=== PATIENT | female | born 1965 | race African-American/Black ===

== ENCOUNTER 2016-09-28 09:36 | Emergency (ER) | payer OTHER ==
[~2016-09-28] VITALS: Ht 162.6 cm; Wt 70.3 kg
[~2016-09-28 09:36] MED LIST: HYDROXYZINE HCL50 M1 PO; KEFLEX500 M1 PO; PREDNISONE10 M2 PO; TRIAMCINOLONE A15 G2 TOP
[2016-09-28 09:40] VITALS: BP 124/81
--- NOTE | 2016-09-28 10:44 | ED NECK/BACK PAIN COMPLAINT ---
History of Present Illness General Chief Complaint: Neck/Upper Back Pain/Injury Stated Complaint: NECK STIFFNESS Source: patient Exam Limitations: no limitations Vital Signs & Intake/Output Vital Signs & Intake/Output Vital Signs Date Time Temp Pulse Resp B/P B/P Pulse O2 O2 Flow FiO2 Mean Ox Delivery Rate 09/28 0940 97.2 61 16 124/81 95 Room Air Allergies Coded Allergies: ciprofloxacin (From [facility]) (RASH 11/03/15) Reconcile Medications Cyclobenzaprine HCl 10 MG TABLET 1 TAB PO QPM PRN MUSCLE RELAXOR Meloxicam 15 MG TABLET 1 TAB PO DAILY PRN PAIN Methylprednisolone. (Medrol) 4 MG TAB.DS.PK 1 DP PO AD INFLAMMATION 6 on day 1 then reduce by one tablet daily until gone Triage Note: PT STATES HER NECK IS "STUCK". PT STATES THIS HAPPEND TO HER 2 YEARS AGO AND SHE CAME HERE AND THEY GAVE HER SOMTHING THAT WORKED. Triage Nurses Notes Reviewed? yes Onset: Gradual Duration: constant Timing: single episode today Quality/Severity: severe Location: paraspinous muscles Method of Injury: unknown HPI: Patient is a 50-year-old female who presents to emergency room stating that she woke up this morning with left-sided cervical neck pain. Patient denies any mechanism of injury. Patient does state that she's had intermittent episodes of left upper extremity paresthesia. Denies any headache chest pain arm pain jaw pain nausea vomiting shortness of breath extremity swelling or weakness. Denies any facial droop or blurred vision. No medications given prior to arrival. Patient does state that she had similar events a few years ago where Naprosyn and muscle relaxer completely improved her symptoms. (PAMELA YANEZ) Past History Travel History Traveled to [place] past 21 day No Medical History Any Pertinent Medical History? see below for history Neurological: NONE EENT: NONE Cardiovascular: NONE Respiratory: NONE Gastrointestinal: NONE Hepatic: NONE Renal: NONE Musculoskeletal: NONE Psychiatric: NONE Endocrine: NONE Surgical History Surgical History: non-contributory, N Psychosocial History What is your primary language [place] Leonean Tobacco Use: Never used ETOH Use: denies use Illicit Drug Use: denies illicit drug use Family History Hx Contributory? No (PAMELA YANEZ) Review of Systems Review of Systems Constitutional: Reports: no symptoms. Eyes: Reports: no symptoms. Ears, Nose, Throat, Mouth: Reports: no symptoms. Respiratory: Reports: no symptoms. Cardiovascular: Reports: no symptoms. Gastrointestinal/Abdominal: Reports: no symptoms. Musculoskeletal: Reports: see HPI, muscle pain, muscle stiffness, neck pain. Skin: Reports: no symptoms. Neurological/Psychological: Reports: no symptoms. All Other Systems: Reviewed and Negative (PAMELA YANEZ) Physical Exam Physical Exam General Appearance: no apparent distress, alert, comfortable Neck: normal inspection, supple, limited range of motion, paraspinous muscle tender, stiff neck, tender lateral Comments: Well-developed well-nourished person in no acute distress HEENT: Normal EENT exam, extraocular motion intact, no nystagmus. Pupils equally round and reactive to light and accommodation. Nose is atraumatic. External auditory canal and Tympanic membranes clear. Pharynx normal. No swelling or edema. Back: Nontender, no CVA tenderness. Cardiovascular: Regular rate and rhythms no murmurs rubs or gallops, normal JVP Respiratory: Chest nontender. No respiratory distress.breath sounds clear to auscultation bilaterally Abdomen: Soft, nontender nondistended, no appreciable organomegaly. Normal bowel sounds. No ascites Extremity: No edema, no calf tenderness to palpation, normal and equal pulses. Bilateral upper extremity myotomes DTRs intact Patient had decreased left upper extremity dermatome sensation compared bilaterally Neuro: Alert oriented x3, motor sensory normal Skin: No appreciable rash on exposed skin, skin is warm and dry. Psych: Mood and affect is normal, memory and judgment is normal. (PAMELA YANEZ) Progress Differential Diagnosis: C spine injury, carotid dissection, cauda equina syn, herniated disc, myofascial strain, pyelo/UTI, sciatica, spinal cord inj, thoracic outlet syn, T/L spine injury, ureterolithiasis Plan of Care: Differential diagnosis also includes discitis spinal abscess Due to history of present illness and exam findings or suspicion of cervical muscular strain and radiculopathy. (PAMELA YANEZ) Departure Departure Disposition: HOME OR SELF CARE Condition: Stable Clinical Impression Primary Impression: Neck pain Secondary Impressions: Cervical radiculopathy Referrals: VALERI MEI MD (PCP/Family) Additional Instructions: As discussed begin icing the area directly 20 minutes every 2 hours. Begin the prescription meloxicam for pain and inflammation and the prescription of cyclobenzaprine for muscle relaxation. Begin a prescription of Medrol Dosepak for inflammation. If no better in 3 days follow up with primary care doctor. Prescriptions waiting at [facility] pharmacy. If symptoms worsen return to emergency room Departure Forms: Customer Survey General Discharge Information Prescriptions: Current Visit Scripts Meloxicam 1 TAB PO DAILY PRN PAIN #15 TAB Cyclobenzaprine HCl 1 TAB PO QPM PRN MUSCLE RELAXOR #10 TAB Methylprednisolone. (Medrol) 1 DP PO AD #1 DP 6 on day 1 then reduce by one tablet daily until gone (PAMELA YANEZ) PA/SENIOR DATA SCIENTIST Co-Sign Statement Statement: ED Attending supervision documentation- [] I saw and evaluated the patient. I have also reviewed all the pertinent lab results and diagnostic results. I agree with the findings and the plan of care as documented in the PA's/SENIOR DATA SCIENTIST's documentation. [X] I have reviewed the ED Record and agree with the PA's/SENIOR DATA SCIENTIST's documentation. [] Additions or exceptions (if any) to the PAs/SENIOR DATA SCIENTIST's note and plan are summarized below: [] (RADHA JACKSON,ERICA)
[2016-09-28] MEDS ORDERED: CYCLOBENZAPRINE10 M1 PO (11:35)
[2016-09-28] MEDS ORDERED: MEDROL4 M2 PO (11:35)
[2016-09-28] MEDS ORDERED: MELOXICAM15 M1 PO (11:35)
== END 2016-09-28 11:42 ==
LOC: ERH 09:36
DX: M54.2 Cervicalgia (principal); M54.12 Radiculopathy, cervical region